=== PATIENT | female | born 1970 | race Caucasian/White ===

== ENCOUNTER 2016-09-10 15:26 | Emergency (ER) | payer OTHER ==
[~2016-09-10] VITALS: Ht 165.1 cm; Wt 90.9 kg
[2016-09-10] MEDS ORDERED: SINGULAIR 110 MG/TAB PO (15:35)
[2016-09-10] MEDS ORDERED: 00186-0372-20 IH (15:35)
[2016-09-10] MEDS ORDERED: ULTRAM 50MG TAB50 MG PO (16:32)
[2016-09-10] MEDS ORDERED: PERCOCET 325 MG1 TA2 PO (16:32)
[2016-09-10 16:37] VITALS: TEMP 97.1
[2016-09-10 17:16] VITALS: BP 135/81; PULSE 74
== END 2016-09-10 17:17 | disposition home or self-care (01) ==
LOC: COL.ER 15:26
DX: S82.65XA Nondisplaced fracture of lateral malleolus of left fibula, initial encounter for closed fracture (principal); S82.392A Other fracture of lower end of left tibia, initial encounter for closed fracture; W19.XXXA Unspecified fall, initial encounter; Y92.414 Local residential or business street as the place of occurrence of the external cause
CPT/HCPCS: J1170; J1885

== ENCOUNTER → 2016-10-08 | Outpatient (CLI) | payer OTHER ==
[~2016-10-08] MED LIST: 00186-0372-20 IH; PERCOCET 325 MG1 TA2 PO; SINGULAIR 110 MG/TAB PO; ULTRAM 50MG TAB50 MG PO
== END ==
LOC: COL.VAS 15:36
DX: Z13.89 Encounter for screening for other disorder (principal); M79.662 Pain in left lower leg

== ENCOUNTER 2017-07-14 18:53 | Emergency (ER) | payer BC, OTHER ==
[~2017-07-14] VITALS: Ht 165.1 cm; Wt 88.6 kg
[2017-07-14 18:58] VITALS: TEMP 98
[2017-07-14 20:10] VITALS: BP 160/89; PULSE 73
== END 2017-07-14 20:12 | disposition home or self-care (01) ==
LOC: COL.ER 18:53
DX: T20.23XA Burn of second degree of chin, initial encounter (principal); T20.22XA Burn of second degree of lip(s), initial encounter; T20.16XA Burn of first degree of forehead and cheek, initial encounter; T20.07XA Burn of unspecified degree of neck, initial encounter; Z23 Encounter for immunization; X12.XXXA Contact with other hot fluids, initial encounter; Y92.009 Unspecified place in unspecified non-institutional (private) residence as the place of occurrence of the external cause

== ENCOUNTER → 2017-08-08 | Outpatient (CLI) | payer BC, OTHER | LOC: COL.RAD 10:30 | DX: N83.292 Other ovarian cyst, left side (principal) ==